=== PATIENT | male | born 1985 | race Caucasian/White ===

== ENCOUNTER → 2018-02-01 15:26 | Outpatient (CLI) | payer OTHER, SELFPAY ==
--- NOTE | 2018-02-01 15:49 | XR_ITS ---
XR chest 2V HISTORY: Cough, sore throat, wheezing ITS.REASON: WHEEZING ORDERING PHYSICIAN: Travis Briggs MD PATIENT AGE: 32 years COMPARISON: None available FINDINGS: The cardiomediastinal silhouette and pulmonary vascularity are within normal limits. There is a 7 mm indeterminate nodule in the left upper lobe. There no previous chest x-rays available for comparison to determine if this is new or old. Patchy density is present in the left upper lobe and lingula with some linear density is well and may be due to atelectasis and/or infiltrate. There is upper thoracic curvature convex left. No acute bony anomalies. IMPRESSION: 1. Left upper lobe infiltrate with atelectatic change. 2. Indeterminate 7 mm nodule in the left upper lobe. If there are old films available at another institution is suggested that be obtained for comparison. If no old films are available then CT may be of further value to determine if this nodule contains calcium
[2018-02-01 16:09] LABS: Adenovirus,PCR Not Detected (NotDetected); Bordetella Pertussis Not Detected (NotDetected); Chlamydophila Pneumoniae, PCR Not Detected (NotDetected); Coronavirus 229E Not Detected (NotDetected); Coronavirus NL63 Not Detected (NotDetected); Coronavirus OC43 Not Detected (NotDetected); Coronovirus HKU1,PCR Not Detected (NotDetected); Human Metapneumovirus Not Detected (NotDetected); Influenza A, PCR Not Detected (NotDetected); Influenza AH1, 2009 Not Detected (NotDetected); Influenza AH1, PCR Not Detected (NotDetected); Influenza AH3,PCR Not Detected (NotDetected); Influenza B, PCR Not Detected (NotDetected); Mycoplasma Pneumoniae, PCR Not Detected (NotDected); Parainfluenza 1, PCR Not Detected (NotDetected); Parainfluenza 2, PCR Not Detected (NotDetected); Parainfluenza 3, PCR Not Detected (NotDetected); Parainfluenza 4, PCR Not Detected (NotDetected); Respiratory Syncytial Virus Not Detected (NotDetected)
[2018-02-01 20:16] LABS: Rhinovirus/Enterovirus Detected (NotDetected)
== END ==
PROVIDERS: PCP Nurse Practitioner Family; Visit Provider Internal Medicine Hematology & Oncology
DX: R06.2 Wheezing (principal)
CPT/HCPCS: 71046; 87486; 87581; 87633; 87798

== ENCOUNTER 2021-05-19 14:49 | Outpatient (RCR) | payer BC, MEDICAID, SELFPAY ==
--- NOTE | 2021-05-19 15:57 | HMH.PTOPEV ---
PT Outpatient Evaluation Rehab PT Outpatient Evaluation Start: 05/19/21 14:56 Freq: Status: Active Protocol: Document 05/19/21 14:56 PDESEROUX (Rec: 05/19/21 15:56 PDESEROUX [id number]) Electronically Signed By Antonio Crow, PT 05/19/21 14:56 Outpatient Therapy Subjective History Subjective History Pt. is a 35 year old male who presents to outpatient PT clinic w/ complaints of subacute and constant dizziness, ear pressure, diplopia, and Tinnitus related to the L side cervical/cranium of insidious onset 3-4 wks. ago. Pt. reports he was walking one day and started noticing himself getting dizzy, states symptoms have progressively worsened. Pt. also c/o getting a pulling sensation towards the left, reports having to keep himself to the right or he will lose his balance. Pt. reports he is having an MRI on his brain at [facility] tomorrow. Pt . denies having any recent falls d/t current pathology. Pt. RTMD 06/18/21. Current medications include Meclizine. PMH includes GERD, Nephrolithiasis, Pneumonia, LUE forearm cystectomy, and a LUE RC strain. Chief Complaint Stiff,Other Symptom Type Ache,Other Symptoms Relieved By Rest/Positioning Symptoms Aggravated By Supine,Sitting,Standing, Bending/Stooping,Twisting Prior Functional Limitations None Current Functional Limitations Desk Work/Reading,Sleeping, Standing,Sitting,Recreation Activity,Walking,Balance, Bending/Stooping Symptom Description Constant but Variable Level of pain today (0-10) 0 Pain scale - at its best (0-10) 0 Pain scale - at its worst (0-10) 0 Balance Eval Subjective Hx of Complaint Comment c/o dizziness, diplopia, tinnitus Chief Complaint vertigo Yes Did you feel dizzy, unsteady or faint? Yes Activity at onset L-sided cervical rotation/
== END 2021-06-13 10:30 | disposition home or self-care (01) ==
LOC: PT.CARL 14:49
PROVIDERS: PCP Nurse Practitioner; Visit Provider Nurse Practitioner Family
DX: R42 Dizziness and giddiness (principal); R51.9 Headache, unspecified
CPT/HCPCS: 97163

== ENCOUNTER → 2021-05-20 15:10 | Outpatient (CLI) | payer BC, MEDICAID, SELFPAY ==
--- NOTE | 2021-05-20 15:10 | MR_ITS ---
PROCEDURE: MR HEAD/BRAIN WO CON CLINICAL INDICATION: dizziness, headache, BPPV, [employer]OR [employer] abnormality Dizziness x4wks. No injury or trauma. No prior. COMPARISON: No exams were available for comparison TECHNIQUE: Routine multiplanar multi echo sequences are performed without gadolinium enhancement. FINDINGS: No midline shift, mass effect, intracranial hemorrhage, or hydrocephalus. No restricted diffusion. The cerebellopontine angles, cerebellum, brainstem, and mid brain have an unremarkable appearance. Unremarkable appearing white matter. The hippocampal gyri are symmetric as are the temporal horns of the lateral ventricles. The pituitary, optic chiasm, corpus callosum, and craniocervical junction have an unremarkable appearance. No mastoid effusion or sinus air-fluid level. IMPRESSION: Negative MRI of the brain without contrast. Dictated by: Davie Rivas MD 05/22/2021 12:04 Davie Rivas MD in OV 05/22/2021 12:04
== END ==
PROVIDERS: PCP Nurse Practitioner; Visit Provider Specialist
DX: R42 Dizziness and giddiness (principal); R51.9 Headache, unspecified
CPT/HCPCS: 70551

== ENCOUNTER 2021-08-03 11:32 | Emergency (ER) | payer BC, MEDICAID, SELFPAY ==
[2021-08-03 11:40] VITALS: BP 143/88; PULSE 87; RESP 18; TEMP 36.9; O2SAT 98; BMI 28.8
--- NOTE | 2021-08-03 12:15 | HMH.EDUTC ---
[facility] Disposition Clinical Impression: Strep throat, COVID-19 virus test result unknown Disposition: Home, Self-Care Condition on Discharge: Good Instructions: DI for Strep Throat, DI for COVID-19 (Suspected or Confirmed ), Preventing the Spread of Coronavirus Discharge Instructions Additional Instructions: covid swab was sent to lab, call later today for results. self isolate until test results are known to be negative No sign of a bacterial infection. Likely viral. Viruses can take 7-14 days to run their course. Nasal saline and bulb syringe or nose Flower to remove nasal drainage to help with nasal congestion. Hard to eat, drink, sleep with nasal congestion so important to keep this cleaned out. Monitor temp. Tylenol or Motrin as needed for pain or fever Encourage fluids, water, Gatorade, Powerade, Pedialyte if /toddler/child Warm salt water gargles Warm fluids Sore throat lozenges Sleep elevated Humidifier/vaporizer Follow-up immediately for new or worsening symptoms or no noticeable improvement over the next 48-72 hours. Start antibiotics today be sure to take it as ordered with the full length of time although you should start feeling better in 24-48 hours. Change toothbrush and toothpaste 24-48 hours after starting antibiotics Tylenol or Motrin as needed for fever or pain Encourage fluids, water, Gatorade, Powerade, try cold fluids, popsicles, ice cream will make it feel better You are contagious for 24 hours. Avoid kissing anyone, no eating or drinking after anyone. You are contagious. Follow-up the ER for new or worsening symptoms or no noticeable improvement over the next 24-48 hours. Follow-up with PCP this week. Prescriptions: Azithromycin [Zithromax 250mg tab] 250 mg PO DIRECTED #6 tab Prescription Printed Referrals: Marimar Martínez, TREMAINE [Primary Care Provider] - Time of Disposition: 12:21 Medical Decision Making - Jasiel Inquiry Pt receiving controlled substance: No Vital Signs: 08/03/21 11:40 Temperature 98.4 F Temperature Source Oral Pulse Rate [Right Brachial] 87 Respiratory Rate 18 Blood Pressure [Right Arm] 143/88 H Blood Pressure Mean [Right Arm] 106 Blood Pressure Source [Right Arm] Automatic Cuff Blood Pressure Position [Right Arm] Sitting 02 Sat by Pulse Oximetry 98 Oxygen Delivery Method Room Air Orders (Tests/Meds): ORDERS Category Date Time Status Covid-19 Nasal PCR ([facility]) Routine Lab 08/03/21 11:51 Ordered [facility] HPI - General Chief complaint: Urgent [facility] Stated complaint: sore throat, cough, diarrhea, body aches covid angelito Time Seen by Provider: 08/03/21 12:18 Mode of Arrival: Ambulatory Source of Information: Patient Limitations: No Limitations Description of Symptoms (Recalled from Triage Doc. by RN): PATIENT C/O HEADACHE, SORE THROAT, BODY ACHES, AND PRODUCTIVE COUGH X 2 DAYS. REQUESTING COVID TEST HEENT Symptoms (Recalled from RN notes): Yes Resp Symptoms (Recalled from RN notes): Yes Skin Symptoms (Recalled from RN notes): No MS Symptoms (Recalled from RN notes): No Functional Status (Recalled from RN notes): WNL - History of Present Illness Provider Complaint: 35 yr old male presnets for cough,sore throat,body aches, fever and chills since last night. - Related Data Home Medications Medication Instructions Recorded Confirmed fluticasone propionate 220 1 puff INHALATION ONCE g 05/12/21 05/12/21 mcg/actuation HFA aerosol inhaler meclizine 12.5 mg tablet 12.5 mg PO TID 05/12/21 05/12/21 pantoprazole 40 mg tablet,delayed mg PO 05/12/21 05/12/21 release Previous Rx's Medication Instructions Recorded Azithromycin [Zithromax 250mg 250 mg PO DIRECTED #6 tab 08/03/21 tab] Allergies Allergy/AdvReac Type Severity Reaction Status Date / Time No Known Allergies Allergy Verified 05/12/21 15:13 - Worker's Comp Is this a Worker's Comp case?: No [facility] History - Hepatitis A Screen Drug use hist
[2021-08-03 12:19] LABS: UTC Strep Screen (Rapid) Positive (Negative)
[2021-08-03 12:23] VITALS: BP 143/88; PULSE 87; RESP 18; TEMP 36.9; O2SAT 98
== END 2021-08-03 12:24 | disposition home or self-care (01) ==
PROVIDERS: Emergency Provider Nurse Practitioner Family; PCP Nurse Practitioner
DX: J02.0 Streptococcal pharyngitis (principal); U07.1 COVID-19
CPT/HCPCS: 87880; 99203; G0463; U0003

== ENCOUNTER 2022-07-16 14:00 | Outpatient (RCR) | payer BC, MEDICAID, SELFPAY | END 2022-08-18 09:44 | disposition home or self-care (01) | LOC: PT.CARL 14:00 | PROVIDERS: PCP Nurse Practitioner; Visit Provider Nurse Practitioner | DX: M54.12 Radiculopathy, cervical region (principal); M25.512 Pain in left shoulder | CPT/HCPCS: 20560; 97010; 97014; 97110; 97140; 97163; G0283 ==

== ENCOUNTER 2022-08-13 12:49 | Emergency (ER) | payer BC, MEDICAID, SELFPAY ==
[2022-08-13 12:50] VITALS: BP 119/79; PULSE 73; RESP 18; TEMP 36.7; O2SAT 99; BMI 28.0
--- NOTE | 2022-08-13 13:12 | EXP.UTC ---
Discharge Plan Disposition Patient Disposition: Home, Self-Care Condition: Good Prescriptions Prescriptions: New benzonatate [benzonatate] 100 mg capsule 100 mg PO TIDP PRN (Reason: Cough) Qty: 30 0RF ondansetron 4 mg Tablet,Disintegrating 4 mg PO Q8H PRN (Reason: Nausea) Qty: 20 0RF No Action pantoprazole 40 mg tablet,delayed release (DR/EC) PO fluticasone propionate 220 mcg/actuation HFA aerosol inhaler 1 puff INHALATION ONCE Label Comments: INHALE 2 PUFFS 2 TIMES EACH DAY. AVOID EATING AND DRINKING FOR 30 MINUTES AFTER USE. meclizine 12.5 mg tablet 12.5 mg PO TID azithromycin 250 MG tablet 250 mg PO DIRECTED Qty: 6 0RF Rx Instructions: Take two (2) tablets on day #1, then one (1) tablet day #2 thru #5 Referrals Follow up/Referrals: Bernarda Martínez PA [Primary Care Provider] - See instructions Activity Restrictions/Add. Instructions Additional Instructions/Restrictions: Drink plenty of fluids. Take tylenol or ibuprofen for pain or fever. Take the medications as directed. Follow up with your regular doctor. GO TO THE ER FOR ANY WORSENING SYMPTOMS Quarantine until you know the results of your covid-19 test. Notify your school or workplace of your results and follow their instructions regarding return to work/school. Clinical Impressions Clinical Impression: COVID-19, Viral syndrome Instructions Patient Instructions: Coronavirus Disease 2019, Preventing the Spread of Coronavirus Discharge Instructions Discharge ED Provider: Tony Skelton [facility] General Stated complaint: covid test Time Seen by Provider: 08/13/22 13:14 History of Present Illness Provider Complaint: He is here to have a covid-19 test. He has had a cough and body aches for the past 2 days. Related Data Home Medications Medication Instructions Recorded Confirmed fluticasone propionate 220 1 puff inhalation ONCE 05/12/21 05/12/21 mcg/actuation HFA aerosol inhaler meclizine 12.5 mg tablet 12.5 mg PO TID 05/12/21 05/12/21 pantoprazole 40 mg tablet,delayed mg PO 05/12/21 05/12/21 release Previous Rx's Medication Instructions Recorded azithromycin 250 mg tablet 250 mg PO DIRECTED #6 tabs 08/03/21 benzonatate 100 mg capsule 100 mg PO TIDP PRN Cough #30 caps 08/13/22 ondansetron 4 mg disintegrating 4 mg PO Q8H PRN Nausea #20 tabs 08/13/22 tablet Allergies Allergy/AdvReac Type Severity Reaction Status Date / Time No Known Allergies Allergy Verified 05/12/21 15:13 PFSH PFSH Social History Smoking Status: Former smoker alcohol intake: never substance use type: denies use current occupational status: employed Travel in the last 8 weeks: None household members: significant other and children housing: apartment ROS Obtained: Yes All systems reviewed & no additional complaints except as documented Constitutional Constitutional: Reports system reviewed and no additional complaints, except as documented, Denies chills and Denies fever(s) Eyes Eyes: Denies eye discharge ENT Ears, Nose, Mouth, and Throat: Denies dysphagia, Denies sore throat and Denies throat swelling Cardiovascular Cardiovascular: Denies chest pain and Denies dyspnea Respiratory Respiratory: Denies chest congestion, Denies cough and Denies dyspnea Gastrointestinal Gastrointestingal: Denies abdominal pain, constipation, diarrhea, dysphagia, nausea or vomiting Musculoskeletal Musculoskeletal: Denies arthralgias Integumentary/Breasts Skin/Breast: Denies rash Neurologic Neurologic: Denies paresthesias Allergic/Immunologic Allergic/Immunologic: Denies throat swelling Physical Exam General General appearance: alert and in no apparent distress Head Head exam: atraumatic, normocephalic and normal inspection Eye Eye exam: Present normal appearance, PERRL and EOMI ENT ENT exam: Present normal exam, n
[2022-08-13 13:34] VITALS: BP 119/79; PULSE 73; RESP 18; TEMP 36.7; O2SAT 99
== END 2022-08-13 13:34 | disposition home or self-care (01) ==
PROVIDERS: Emergency Provider Nurse Practitioner Family; PCP Physician Assistant
DX: U07.1 COVID-19 (principal)
CPT/HCPCS: 99212; C9803; G0463; U0003; U0005

== ENCOUNTER → 2023-01-19 11:53 | Outpatient (CLI) | payer MEDICAID, SELFPAY ==
--- NOTE | 2023-01-19 11:56 | XR_ITS ---
FINAL REPORT CLINICAL HISTORY: left sided chest pain when taking a deep breath, cough, soa, concern for pneumonia COMPARISON: 02/01/2018 FINDINGS: TWO-VIEW CHEST The heart size is normal. The mediastinum is normal. There are left lung opacities, may represent atelectasis or scar. The right lung is clear. There is no pneumothorax. IMPRESSION: Left lung atelectasis versus scar. Reviewed, Interpreted and Dictated by Karthikeyan Ortez III, MD Transcribed by Kalpana Arauz Authenticated and [facility]
== END ==
PROVIDERS: PCP Nurse Practitioner; Visit Provider Student in an Organized Health Care Education/Training Program
DX: R05.9 Cough, unspecified (principal)
CPT/HCPCS: 71046

== ENCOUNTER 2023-11-09 10:57 | Emergency (ER) | payer BC, SELFPAY ==
[2023-11-09 12:20] VITALS: BP 118/82; PULSE 77; RESP 18; TEMP 36.8; O2SAT 98; BMI 29.7
--- NOTE | 2023-11-09 12:24 | EXP.UTC ---
Discharge Plan Disposition Patient Disposition: Home, Self-Care Condition: Good Prescriptions Prescriptions: New amoxicillin [amoxicillin] 875 mg tablet 875 mg PO Q12H Qty: 20 0RF benzonatate [benzonatate] 100 mg capsule 100 mg PO TIDP PRN (Reason: Cough) Qty: 30 0RF oseltamivir [Tamiflu] 75 mg capsule 75 mg PO BID Qty: 10 0RF ondansetron 4 mg Tablet,Disintegrating 4 mg PO Q8H PRN (Reason: Nausea) Qty: 12 0RF Referrals Follow up/Referrals: Marimar Martínez APRN [Primary Care Provider] - See instructions Activity Restrictions/Add. Instructions Additional Instructions/Restrictions: Drink plenty of fluids. Take tylenol or ibuprofen for pain or fever. Take the medications as directed. Follow up with your regular doctor. GO TO THE ER FOR ANY WORSENING SYMPTOMS Clinical Impressions Clinical Impression: Strep throat, Influenza B Stand Alone Forms Stand Alone Forms: Work/School Release Instructions Patient Instructions: DI for Strep Throat, DI for Influenza -- Adult, Oseltamivir Discharge ED Provider: Tony Skelton [facility] General Stated complaint: sore throat, congestion, fever, body aches Time Seen by Provider: 11/09/23 12:24 History of Present Illness Provider Complaint: He states that he has had fever, chills, body aches, cough and congestion for the past 2 days. Related Data Previous Rx's Medication Instructions Recorded amoxicillin 875 mg tablet 875 mg PO Q12H #20 tabs 11/09/23 benzonatate 100 mg capsule 100 mg PO TIDP PRN Cough #30 caps 11/09/23 ondansetron 4 mg disintegrating 4 mg PO Q8H PRN Nausea #12 tabs 11/09/23 tablet oseltamivir 75 mg capsule (Tamiflu) 75 mg PO BID #10 caps 11/09/23 Allergies Allergy/AdvReac Type Severity Reaction Status Date / Time No Known Allergies Allergy Verified 11/09/23 12:34 [facility] Disclaimer: The information contained in this section may have been updated after the patient was seen, as this information can be updated by other users. Social History Smoking Status: Former smoker tobacco type: cigarettes packs per day: 1 alcohol intake: never substance use type: denies use current occupational status: employed Travel in the last 8 weeks: None household members: significant other and children housing: apartment ROS Obtained: Yes All systems reviewed & no additional complaints except as documented Constitutional Constitutional: Reports chills and Reports fever(s) Eyes Eyes: Denies eye discharge ENT Ears, Nose, Mouth, and Throat: Reports as per HPI Cardiovascular Cardiovascular: Denies chest pain Respiratory Respiratory: Denies chest congestion and Reports cough Gastrointestinal Gastrointestingal: Reports nausea; Denies abdominal pain, constipation, cramping, diarrhea or vomiting Musculoskeletal Musculoskeletal: Denies arthralgias Integumentary/Breasts Skin/Breast: Denies rash Neurologic Neurologic: Denies paresthesias Physical Exam General General appearance: alert and in no apparent distress Head Head exam: atraumatic, normocephalic and normal inspection Eye Eye exam: Present normal appearance, PERRL and EOMI ENT ENT exam: Present mucous membranes moist and normal external ear exam Expanded ENT Exam TM/Canal exam: Bilateral TM: erythema and bulging Nose exam: Absent sinus tenderness Mouth exam: Present normal external inspection; Absent drooling Teeth exam: Present normal inspection Throat exam: Present tonsillar erythema, tonsillomegaly and tonsillar exudate Neck Neck exam: Present normal inspection, full ROM and trachea midline; Absent tenderness, meningismus or lymphadenopathy Chest Chest inspection: Present normal inspection and symmetric chest wall rise; Absent tenderness Respiratory Respiratory exam: Present normal lung sounds bilaterally; Absent respiratory distress, wheezes or stridor Cardiovascular Cardiovascular exam: Present re
[2023-11-09 12:35] LABS: UTC Strep Screen (Rapid) Positive (Negative)
[2023-11-09 12:36] LABS: UTC Influenza A Antigen Negative (Negative); UTC Influenza B Antigen Negative (Negative)
[2023-11-09 13:05] VITALS: BP 118/82; PULSE 77; RESP 18; TEMP 36.8; O2SAT 98
== END 2023-11-09 13:05 | disposition home or self-care (01) ==
PROVIDERS: Emergency Provider Nurse Practitioner Family; PCP Nurse Practitioner
DX: J02.0 Streptococcal pharyngitis (principal); J10.1 Influenza due to other identified influenza virus with other respiratory manifestations; R07.0 Pain in throat; R50.9 Fever, unspecified; R09.81 Nasal congestion; R05.9 Cough, unspecified; R11.0 Nausea; Z87.891 Personal history of nicotine dependence
CPT/HCPCS: 87804; 87880; 99212; 99214; G0463

== ENCOUNTER 2025-01-01 10:19 | Emergency (ER) | payer SELFPAY ==
[2025-01-01 12:16] VITALS: BP 128/79; PULSE 79; RESP 18; TEMP 36.9; O2SAT 95; BMI 29.0
--- NOTE | 2025-01-01 12:26 | EXP.UTC ---
Discharge Plan Disposition Patient Disposition: Home, Self-Care Condition: Good Prescriptions Prescriptions: New methylprednisolone 4 mg Tablets,Dose Pack 4 mg PO DIRECTED 6 Days Qty: 21 0RF Rx Instructions: Take 1 pack as directed for 6 days [id number] [Bromfed DM] 2-30-10 mg/5 mL Syrup 5 ml PO Q6H PRN (Reason: Cough) Qty: 240 0RF amoxicillin-pot clavulanate 875-125 mg Tablet 1 tab PO Q12H Qty: 20 0RF Referrals Follow up/Referrals: Bernarda Martínez PA [Primary Care Provider] - See instructions Activity Restrictions/Add. Instructions Additional Instructions/Restrictions: Drink plenty of fluids. Take tylenol or ibuprofen for pain or fever. Take the medications as directed. Follow up with your regular doctor. GO TO THE ER FOR ANY WORSENING SYMPTOMS Clinical Impressions Clinical Impression: Pneumonia Stand Alone Forms Stand Alone Forms: Work/School Release Instructions Patient Instructions: Pneumonia--Adult, Ondansetron, Amoxicillin and Clavulanic Acid Print Language Print Language: Omani Discharge ED Provider: Tony Skelton [facility] HPI General Stated complaint: soa, cough, and headache Mode of Arrival: Ambulatory Source of Information: Patient Limitations: No Limitations Time Seen by Provider: 01/01/25 12:26 Description of Symptoms (Recalled from Triage Doc. by RN): [facility] to [facility] with cough, nausea, headaches and fatigue HEENT Symptoms (Recalled from RN notes): Yes (headache) Resp Symptoms (Recalled from RN notes): Yes (cough, congestion) Skin Symptoms (Recalled from RN notes): No MS Symptoms (Recalled from RN notes): No Functional Status (Recalled from RN notes): WDL Related Data Previous Rx's ?Medication ?Instructions ?Recorded amoxicillin 875 mg-potassium 1 tab PO Q12H #20 tabs 01/01/25 clavulanate 125 mg tablet [id number]-vpzinbzmjfhzrvl-[id number] 5 ml PO Q6H PRN Cough #240 mL 01/01/25 2 mg-30 mg-10 mg/5 mL oral syrup (Bromfed DM) methylprednisolone 4 mg tablets in 4 mg PO DIRECTED 6 days #21 tabs 01/01/25 a dose pack Allergies Allergy/AdvReac Type Severity Reaction Status Date / Time No Known Allergies Allergy Verified 08/24/24 09:21 Worker's Comp Is this a Worker's Comp case?: No [facility] Disclaimer: The information contained in this section may have been updated after the patient was seen, as this information can be updated by other users. Social History Smoking Status: Former smoker tobacco type: cigarettes packs per day: 1 alcohol intake: never substance use type: denies use current occupational status: employed Travel in the last 8 weeks: None household members: significant other and children housing: apartment Have you lived/traveled outside [place] in past 30 days?: No Contact w/someone who lives/traveled outside US past 30 days?: No Exposure to someone with infectious disease in past 14 days?: No Do you have a fever (greater than 100.4 F or 38 C)?: No Have you tested positive for COVID-19: No Exposed to someone with COVID-19 in past 14 days?: No Do you have a sore throat?: No Do you have a cough?: No Do you have any weakness?: No Do you have any diarrhea?: No Are you experiencing any unusual bleeding?: No Do you have any muscle aches/pain?: No Do you have any abdominal pain?: No Are you experiencing loss of taste or smell?: No ROS Obtained: Yes All systems reviewed & no additional complaints except as documented Constitutional Constitutional: Reports chills and Reports fever(s) Eyes Eyes: Denies eye discharge ENT Ears, Nose, Mouth, and Throat: Reports as per HPI Cardiovascular Cardiovascular: Denies chest pain Respiratory Respiratory: Denies chest congestion and Reports cough Gastrointestinal Gastrointestingal: Reports nausea; Denies abdominal pain, constipation, cramping, diarrhea or vomiting Musculoskeletal Musculoskeletal: Denies arthralgias Integumentary/Breasts Skin/Breast: Denies rash Neurologic Neurologic: Denies paresthesias Physical Exam General General appearance: alert and in no apparent distress Head Head exam: atraumatic, normocephalic and normal inspection Eye Eye exam: Present normal appearance, PERRL and EOMI ENT ENT exam: Present normal exam, normal oropharynx, mucous membranes moist, TM's normal bilaterally and normal external ear exam Neck Neck exam: Present normal inspection, full ROM and trachea midline; Absent meningismus or lymphadenopathy Chest Chest inspection: Present normal inspection and symmetric chest wall rise; Absent tenderness Respiratory Respiratory exam: Present normal lung sounds bilaterally; Absent respiratory distress Cardiovascular Cardiovascular exam: Present regular rate and normal rhythm; Absent JVD Abdominal Exam Abdominal exam: Present soft and normal bowel sounds; Absent distention, tenderness or guarding Extremities Exam Extremities exam: Present normal inspection, full ROM and normal capillary refill; Absent calf tenderness Back Exam Back exam: Present normal inspection; Absent tenderness Neurological Exam Neurological exam: Present alert and oriented X3 Psychiatric Psychiatric exam: Present normal affect and normal mood Skin Skin exam: Present warm, dry, intact and normal color Lymphatic Lymphatic Findings: no adenopathy Medical Decision Making Medical Records Medical records reviewed: No I reviewed the patient's medical records. Screening: Per USPSTF and CDC recommendations, given the prevalence of disease in our region, it is our hospital?s policy to screen for HIV and viral Hepatitis for all patients aged 18 and over and those with ongoing risk factors. Jasiel Inquiry Pt receiving controlled substance: No Vital Signs: 01/01/25 12:16 Temperature 98.5 F Temperature Source Oral Pulse Rate [Left Radial] 79 Respiratory Rate 18 Blood Pressure [Right Arm] 128/79 Blood Pressure Mean [Right Arm] 95 Blood Pressure Source [Right Arm] Automatic Cuff Blood Pressure Position [Right Arm] Sitting 02 Sat by Pulse Oximetry 95 Oxygen Delivery Method Room Air Lab Data Lab results reviewed: Yes I reviewed the patient's lab results.
[2025-01-01 12:31] LABS: UTC Influenza A Antigen Negative (Negative); UTC Influenza B Antigen Negative (Negative)
--- NOTE | 2025-01-01 12:42 | XR_ITS ---
FINAL REPORT TECHNIQUE: Chest PA & Lateral CLINICAL HISTORY: cough, congestion COMPARISON: 04/27/2023 FINDINGS: 2 views of the chest were performed. The heart size is mildly enlarged. The mediastinum is within normal limits. There is linear scarring in the left perihilar region.. There appears to be a small left pleural effusion. There is no pneumothorax. The bony thorax appears intact. IMPRESSION: Small left pleural effusion and linear scarring left perihilar region. Reviewed, Interpreted and Dictated by Abelardo Jenkins MD Transcribed by Madina Cloud Authenticated and [facility]
[2025-01-01] MEDS: LIDOCAINE 1% 5ML PF VIAL IM (13:18)
[2025-01-01] MEDS: cefTRIAXone 1GM VIAL 1 GM IM (13:18)
[2025-01-01 13:31] VITALS: BP 128/79; PULSE 79; RESP 18; TEMP 36.9
== END 2025-01-01 13:39 | disposition home or self-care (01) ==
PROVIDERS: Emergency Provider Nurse Practitioner Family; PCP Physician Assistant
DX: J18.9 Pneumonia, unspecified organism (principal)
CPT/HCPCS: 71046; 87804; 99213; G0381; J0696